=== PATIENT | male | born 1955 | race Caucasian/White ===

== ENCOUNTER 2018-11-05 10:03 | Emergency (ER) | payer BC ==
[~2018-11-05] VITALS: Ht 172.7 cm; Wt 94.8 kg
--- NOTE | ~2018-11-05 | EKG ---
[address] [address] ELECTROCARDIOGRAM REPORT Name: TIMMY VAZQUEZ Room #: [facility], [facility] Varsha#: [id number] Admission: 11/05/18 Attend Phys: Discharge: 11/05/18 Date of : 55 Report #: [id number] THIS REPORT FOR: //name// [facility] ED Test Date: 2018-11-05 Test Time: 10:45:34 Pat Name: TIMMY VAZQUEZ Department: Room: Gender: M Wedger Machine: [email or web address] : 1955 Requested By: Dominga Mckoy Order Number: [id number] MD: Migue Henriquez Measurements Intervals [place] Rate: 64 P: 44 [place]: 165 QRS: -24 QRSD: 96 T: 26 QT: 392 QTc: 405 Interpretive Statements Sinus rhythm Left ventricular hypertrophy No previous ECG available for comparison Electronically Signed On 11-07-2018 20:23:56 [employer] by Migue Henriquez [email or web address] <ELECTRONICALLY SIGNED> By: Migue Henriquez MD 11/07/183 1045 1045 Migue Henriquez MD /[email or web address]
[~2018-11-05 10:03] MED LIST: ALLOPURINOL 10100 M1 PO; ASPIRIN81 M2 PO; AVODART0.5 MG PO; CARDURA XL8 MG PO; CARVEDILOL12.5 MG PO; CLARITIN10 M2 PO; FISH OIL 1,001000 M2 PO; GEMFIBROZIL 60600 MG PO; HUMALOG100 UNIT/2 SQ; HYDROCHLOROTHIA25 M2 PO; LANTUS100 UNIT/M SUBQ; LIPITOR40 MG PO; MULTI PO; NEXIUM40 MG PO; PRINIVIL20 MG PO; VITAMIN D3400 UNIT PO
[2018-11-05 10:48] LABS: ABSOLUTE NEUTROPHILS 3.5 thou/uL (1.4-8.2); BASOPHILS 1.3 % (0.0-2.0); EOSINOPHILS 3.5 % (0.0-3.0); HEMATOCRIT 29.7 % (42.0-52.0); HEMOGLOBIN 10.2 gm/dL (14.0-18.0); LYMPHOCYTES 17.7 % (24.0-44.0); MCH 31.8 pg (26.0-34.0); MCHC 34.3 g/dL (28.0-37.0); MCV 92.8 fL (80.0-100.0); MONOCYTES 8.2 % (1.0-8.0); PLATELET COUNT 219 thou/uL (150-400); POLYS 69.3 % (36.0-66.0); RDW 13.6 % (10.5-14.5); WBC 5.1 thou/uL (4.0-11.0)
[2018-11-05 10:55] LABS: ANION GAP 8 mmol/L (7-16); BUN 41 mg/dL (7-18); CHLORIDE 106 mmol/L (98-107); CO2 26 mmol/L (21-32); GLUCOSE 70 mg/dL (74-106); POTASSIUM 4.1 mmol/L (3.5-5.1); SODIUM 140 mmol/L (136-145)
[2018-11-05 11:03] LABS: ALBUMIN 3.2 g/dL (3.4-5.0); SGOT 21 U/L (15-37); SGPT 26 U/L (30-65); TOTAL BILIRUBIN 0.2 mg/dL (<0.1-1.0); TOTAL PROTEIN 6.7 g/dL (6.4-8.2); TROPONIN-I <0.06 ng/mL (<0.06)
[2018-11-05] MEDS ORDERED: CALCITRIOL0.25 MCG PO (12:45)
[2018-11-05] MEDS ORDERED: PLAVIX 75 MG TA75 M1 PO (12:45)
[2018-11-05] MEDS ORDERED: HYDRALAZINE 2525 MG PO (12:46)
[2018-11-05] MEDS ORDERED: UNICOMPLEX M TA1 TA1 PO (12:46)
[2018-11-05] MEDS ORDERED: COREG25 MG PO (12:46)
[2018-11-05] MEDS ORDERED: CRESTOR20 MG PO (12:46)
[2018-11-05] MEDS ORDERED: VITAMIN D2000 UNIT PO (12:47)
[2018-11-05] MEDS ORDERED: ZANTAC 150MG T150 MG PO (12:47)
[2018-11-05] MEDS ORDERED: LANTUS100 UNIT/M SUBQ (12:48)
[2018-11-05] MEDS ORDERED: NOVOLOG100 UNIT/1 SUBQ (12:48)
[2018-11-05 14:05] VITALS: BP 133/70
== END 2018-11-05 15:00 | disposition home or self-care (01) ==
LOC: ER 10:03
PROVIDERS: Physician Assistant
DX: I95.9 Hypotension, unspecified (principal); R10.13 Epigastric pain; K21.9 Gastro-esophageal reflux disease without esophagitis; M10.9 Gout, unspecified; I12.9 Hypertensive chronic kidney disease with stage 1 through stage 4 chronic kidney disease, or unspecified chronic kidney disease; E11.22 Type 2 diabetes mellitus with diabetic chronic kidney disease; N18.3 Chronic kidney disease, stage 3 (moderate); Z88.5 Allergy status to narcotic agent; Z79.4 Long term (current) use of insulin